=== PATIENT | female | born 2000 | race American Indian/Alaskan Native ===

== ENCOUNTER 2021-01-07 12:16 | Emergency (ER) | payer SELFPAY ==
[2021-01-07 13:07] VITALS: BP 123/61
[2021-01-07 13:51] LABS: Bilirubin,Urine NEG (Negative); Blood,Urine NEG (Negative); Color,Urine Yellow (Yellow); Mucus,Urine FEW /HPF; Protein,Urine <15 mg/dL mg/dL (Negative); RBC,Urine < 1.0 /HPF (0.0-6.0); Urobilinogen,Urine < 2.0 mg/dL (<2.0)
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
[2021-01-07 14:03] LABS: HCG Qualitative,Urine Negative (Negative)
== END 2021-01-07 14:33 | disposition home or self-care (01) ==
LOC: ED 12:16
DX: S39.011A Strain of muscle, fascia and tendon of abdomen, initial encounter (principal); N76.0 Acute vaginitis; B96.89 Other specified bacterial agents as the cause of diseases classified elsewhere; Z79.899 Other long term (current) drug therapy; X58.XXXA Exposure to other specified factors, initial encounter; Y93.89 Activity, other specified; Y92.89 Other specified places as the place of occurrence of the external cause; Y99.8 Other external cause status
CPT/HCPCS: 81001; 81025; 87210; 87591; 99283

== ENCOUNTER 2021-02-16 10:12 | Emergency (ER) | payer SELFPAY ==
[2021-02-16 10:54] VITALS: BP 116/55
[2021-02-16] MEDS ORDERED: IBUPROFEN 800 MG TAB PO ONE (11:24)
[2021-02-16] MEDS ORDERED: ACETAMINOPHEN 325 MG TAB PO ONE (11:24)
--- NOTE | 2021-02-16 11:40 | Emergency Department Report ---
Chief Complaint: Extremity Problem,Nontraumatic Stated Complaint: LEG PAIN Time Seen by Provider: 02/16/21 11:19 - HPI History of Present Illness: 20-year-old -[place] female patient presents with complaints of bilateral tingling in her legs and hands and left eye intermittent twitching x yesterday. She denies any injury, history of diabetes, dysuria/hematuria/urinary frequency, leg pain/swelling, back pain, abdominal pain, or nausea/vomiting/diarrhea. Patient also denies being a vegetarian/vegan. She admits to heavy alcohol intake daily for the past few months and states she does not drink very much water. Physical exam is normal. Differential diagnosis includes B12 deficiency, dehydration, and peripheral neuropathy. Recommend follow-up with primary care doctor for further evaluation. Also recommend high water intake, avoidance of alcohol, and vitamin B12 supplements. Her vitals are normal, she is well- appearing, she is stable for discharge home. Strict return precautions were discussed in detail with patient who verbalizes understanding. - Exam Vital Signs: Vital Signs 02/16/21 10:53 Temperature 98 F Pulse Rate 71 Respiratory 16 Rate Blood Pressure 116/55 [Right] O2 Sat by Pulse 98 Oximetry MSE screening note: Focused history and physical exam performed. Due to findings the following was ordered: ED Disposition for MSE Clinical Impression: Dehydration, Leg paresthesia Disposition: Z-07 MED SCREENING EXAM-LEFT Condition: Stable Instructions: Paresthesia, Vitamin B12 Deficiency, Dehydration, Adult Referrals: [facility] [Provider Group] - 2-3 Days Forms: Work/School Release Form(ED) ED Review of Systems ROS: Stated complaint: LEG PAIN Other details as noted in HPI Constitutional: denies: chills, diaphoresis, fever, malaise, weakness Eyes: denies: vision change ENT: denies: hearing loss Respiratory: denies: cough, shortness of breath Cardiovascular: denies: chest pain Endocrine: denies: excessive sweating Gastrointestinal: denies: abdominal pain, nausea, vomiting Genitourinary: denies: urgency, frequency, hematuria Musculoskeletal: denies: joint swelling, arthralgia Skin: denies: rash, lesions, change in color Neurological: paresthesias. denies: numbness, abnormal gait Hematological/Lymphatic: denies: easy bleeding, easy bruising, swollen glands ED Physical Exam - General Limitations: No Limitations General appearance: alert, in no apparent distress - Head Head exam: Present: atraumatic, normocephalic - Eye Eye exam: Present: normal appearance. Absent: scleral icterus - Neck Neck exam: Present: normal inspection, full ROM. Absent: tenderness, meningismus - Respiratory Respiratory exam: Present: normal lung sounds bilaterally. Absent: respiratory distress - Cardiovascular Cardiovascular Exam: Present: regular rate - GI/Abdominal GI/Abdominal exam: Present: soft. Absent: distended, tenderness - Expanded Upper Extremity Exam Left Hand Wrist exam: Present: normal inspection, full ROM. Absent: tenderness, swelling Vascular: Present: normal capillary refill. Absent: vascular compromise, pulse deficit radial art, pulse deficit ulnar art Right Hand Wrist exam: Present: normal inspection, full ROM. Absent: tenderness, swelling Vascular: Absent: vascular compromise, pulse deficit radial art, pulse deficit ulnar art - Expanded Lower Extremity Exam Left Knee exam: Present: normal inspection, full ROM. Absent: tenderness, swelling Lower Leg exam: Present: normal inspection, full ROM. Absent: tenderness, swelling Foot/Toe exam: Present: normal inspection, full ROM Neuro vascular tendon exam: Present: no vascular compromise. Absent: pulse deficit Right Knee exam: Present: normal inspection, full ROM. Absent: tenderness Lower Leg exam: Present: normal inspection, full ROM. Absent: tenderness Ankle exam: Present: normal inspection Neuro vascular tendon exam: Present: no vascular compromise. Absent: pulse deficit Gait: Positive: observed and normal - Back Exam Back exam: Present: full ROM - Neurological Exam Neurological exam: Present: alert, oriented X3, CN II-XII intact, normal gait. Absent: motor sensory deficit - Expanded Neurological Exam Expanded Sensory exam: Upper Extremity Light Touch: Normal, Lower Extremity Light Touch: Normal Motor strength exam: RUE: 5, LUE: 5, RLE: 5, LLE: 5 - Psychiatric Psychiatric exam: Present: normal affect, normal mood - Skin Skin exam: Present: warm, dry, intact, normal color. Absent: rash
== END 2021-02-16 14:40 | disposition left against medical advice (07) ==
LOC: ED 10:12
DX: R20.0 Anesthesia of skin (principal); Z53.21 Procedure and treatment not carried out due to patient leaving prior to being seen by health care provider

== ENCOUNTER 2021-05-30 17:02 | Emergency (ER) | payer SELFPAY ==
[2021-05-30 18:30] LABS: Bacteria,Urine 1+ /HPF (Negative); Bilirubin,Urine NEG (Negative); Blood,Urine NEG (Negative); Color,Urine Yellow (Yellow); Mucus,Urine FEW /HPF; RBC,Urine < 1.0 /HPF (0.0-6.0); Urobilinogen,Urine < 2.0 mg/dL (<2.0)
--- NOTE | 2021-05-30 20:29 | Emergency Department Report ---
ED Female HPI - General Chief complaint: Abdominal Pain Stated complaint: ABD PAINS Time Seen by Provider: 05/30/21 19:37 Source: patient Mode of arrival: Ambulatory Limitations: No Limitations - History of Present Illness Initial comments: 21-year-old female presents to the ER today with complaints of low abdominal/pelvic pain and vaginal discharge. Patient states that she has been having sharp intermittent pain for the past 1 week. She reports dysuria and also white vaginal discharge. She states she thinks the discharge could be related to a yeast infection. She is sexually active and admits to new recent sexual partner and has been having unprotected sexual intercourse. She denies any abnormal vaginal bleeding. Her last menstrual cycle was the end of April. She is not currently on any control. She denies any nausea, vomiting, diarrhea and/or constipation or any other symptoms. MD Complaint: vaginal discharge, pelvic pain -: Gradual, week(s) (1) - Related Data Previous Rx's Medication Instructions Recorded Last Taken Type Cyclobenzaprine HCl [Flexeril 5 MG 5 - 10 mg PO TID #30 tab 01/07/21 Unknown Rx TAB] metroNIDAZOLE [Flagyl] 2,000 mg PO ONCE #4 tablet 01/07/21 Unknown Rx predniSONE [Deltasone] 40 mg PO QDAY #10 tab 01/07/21 Unknown Rx DOXYCYCLINE Hyclate [Vibramycin 100 mg PO Q12HR #14 capsule 05/30/21 Unknown Rx CAP] Fluticasone [Flonase] 2 spray NS QDAY #1 bottle 05/30/21 Unknown Rx Allergies Allergy/AdvReac Type Severity Reaction Status Date / Time No Known Allergies Allergy Unverified 01/07/21 13:04 ED Review of Systems ROS: Stated complaint: ABD PAINS Other details as noted in HPI Comment: All other systems reviewed and negative Constitutional: denies: chills, fever Eyes: denies: eye pain, eye discharge, vision change ENT: denies: ear pain, throat pain Respiratory: denies: cough, shortness of breath, SOB with exertion, SOB at rest, wheezing Cardiovascular: denies: chest pain, palpitations, dyspnea on exertion, edema, syncope, paroxysmal nocturnal dyspnea Gastrointestinal: abdominal pain. denies: nausea, diarrhea, constipation, hematemesis, melena, hematochezia Genitourinary: dysuria, discharge. denies: urgency, frequency, hematuria, abnormal menses, dyspareunia Musculoskeletal: denies: back pain, joint swelling, arthralgia, myalgia Skin: denies: rash, lesions, change in color, change in hair/nails, pruritus Neurological: denies: headache, weakness, numbness, paresthesias, confusion, abnormal gait, vertigo Psychiatric: denies: anxiety, depression, auditory hallucinations, visual hallucinations, homicidal thoughts, suicidal thoughts Hematological/Lymphatic: denies: easy bleeding, easy bruising, swollen glands ED Past Medical Hx - Past Medical History Previous Medical History?: No - Surgical History Past Surgical History?: No - Social History Smoking Status: Never Smoker - Medications Home Medications: Home Medications Medication Instructions Recorded Confirmed Last Taken Type Cyclobenzaprine HCl [Flexeril 5 MG 5 - 10 mg PO TID #30 tab 01/07/21 Unknown Rx TAB] metroNIDAZOLE [Flagyl] 2,000 mg PO ONCE #4 tablet 01/07/21 Unknown Rx predniSONE [Deltasone] 40 mg PO QDAY #10 tab 01/07/21 Unknown Rx DOXYCYCLINE Hyclate [Vibramycin 100 mg PO Q12HR #14 capsule 05/30/21 Unknown Rx CAP] Fluticasone [Flonase] 2 spray NS QDAY #1 bottle 05/30/21 Unknown Rx ED Physical Exam - General Limitations: No Limitations General appearance: alert, in no apparent distress - Head Head exam: Present: atraumatic, normocephalic, normal inspection - Eye Eye exam: Present: normal appearance, PERRL, EOMI Pupils: Present: normal accommodation - ENT ENT exam: Present: normal exam, mucous membranes moist - Neck Neck exam: Present: normal inspection, full ROM - Respiratory Respiratory exam: Present: normal lung sounds bilaterally. Absent: respiratory distress, wheezes, rales, rhonchi - Cardiovascular Cardiovascular Exam: Present: regular rate, normal rhythm, normal heart sounds - GI/Abdominal GI/Abdominal exam: Present: soft. Absent: distended, tenderness, guarding, rebound - External exam: Present: normal external exam Speculum exam: Present: vaginal discharge (Small amount of white vaginal discharge). Absent: vaginal bleeding, foreign body, tissue, laceration Bi-manual exam: Present: normal bi-manual exam - Extremities Exam Extremities exam: Present: normal inspection - Neurological Exam Neurological exam: Present: alert, oriented X3, CN II-XII intact, normal gait - Psychiatric Psychiatric exam: Present: normal affect, normal mood - Skin Skin exam: Present: intact ED Course Vital Signs 05/30/21 21:11 Temperature 97.6 F Pulse Rate 59 L Respiratory 16 Rate Blood Pressure 119/67 [Right] O2 Sat by Pulse 99 Oximetry ED Medical Decision Making - Medical Decision Making Pt resting comfortably. She is not in any acute distress. She is not toxic or ill-appearing. She appears well-hydrated. She is neurologically intact. She has a soft nontender abdomen. Pelvic exam showed small amount of white discharge but otherwise pelvic exam unremarkable with no CMT or adnexal mass or tenderness. Lab results reviewed -- UA shows no UTI; hCG is negative; wet prep shows no yeast, trichomoniasis or BV; GC pending Reviewed results with patient. Patient opted to get treated prophylactically for gonorrhea and chlamydia. All discussed lab results with patient she also did mention that she thinks she does have a sinus infection. She states when she blows her nose she has green d ischarge but is something that she states that she has been having since she was young including green discharge. Informed patient that since she has been having the same symptoms also for long time could be related to chronic sinusitis. She will be prescribed Flonase and recommend that she take [id number] allergy medicine and follow-up with the ENT. Patient expressed understanding of instructions and agree with plan. Patient was stable at time of discharge. Critical care attestation.: If time is entered above; I have spent that time in minutes in the direct care of this critically ill patient, excluding procedure time. ED Disposition Clinical Impression: Vaginal discharge, Chronic recurrent sinusitis Disposition: DC-01 TO HOME OR SELFCARE Is pt being admited?: No Does the pt Need Aspirin: No Condition: Stable Instructions: Vaginitis, [id number], Sinusitis, Adult, [id number], Abdominal Pain (ED) Additional Instructions: Take the doxycycline twice per day as discussed. If you want to know about your results, you can go to medical record department for results. Use the flonase daily and I recommend that you take either Claritin, Zyrtec, Sudafed or Allison to help with your sinus and you can follow if symptoms continue. Take tylenol or motrin for pain. Return to the ER if your symptoms changes or worsens in any way. Prescriptions: Fluticasone [Flonase] 2 spray NS QDAY #1 bottle DOXYCYCLINE Hyclate [Vibramycin CAP] 100 mg PO Q12HR #14 capsule Referrals: IRMA WEBSTER MD [Staff Physician] - 3-5 Days [facility] [Provider Group] - 3-5 Days Time of Disposition: 21:14
[2021-05-30 21:07] LABS: HCG Qualitative,Urine Negative (Negative)
[2021-05-30] MEDS ORDERED: LIDOCAINE-MPF (1%) 10 MG/1 ML VIAL 5 ML INFILTRATI ONE (21:09)
[2021-05-30 21:12] VITALS: BP 119/67
== END 2021-05-30 22:10 | disposition home or self-care (01) ==
LOC: ED 17:02
DX: N89.8 Other specified noninflammatory disorders of vagina (principal); J32.8 Other chronic sinusitis; Z79.899 Other long term (current) drug therapy
CPT/HCPCS: 81001; 81025; 87210; 87591; 96372; 99284; J0696